=== PATIENT | female | born 1985 | race African-American/Black ===

== ENCOUNTER 2020-10-01 13:53 | Emergency (ER) | payer OTHER ==
[~2020-10-01] VITALS: Ht 165.1 cm; Wt 82.0 kg
[2020-10-01] MEDS ORDERED: KETOROLAC 30MG/ML VIAL IV STA (14:41)
[2020-10-01] MEDS ORDERED: SODIUM CHLORIDE 0.9% 1,000 ML IV ONE (14:45)
[2020-10-01] MEDS ORDERED: METOCLOPRAMIDE HCL 10MG/2ML VIAL IV ONE (14:45)
[2020-10-01] MEDS ORDERED: IBUP-2030 MT (16:20)
[2020-10-01] MEDS ORDERED: METO5TAB86 MT (16:20)
[2020-10-01 17:06] VITALS: BP 126/85
== END 2020-10-01 17:08 | disposition home or self-care (01) ==
LOC: ER 14:16
DX: R51.9 Headache, unspecified (principal); Z98.890 Other specified postprocedural states
CPT/HCPCS: 96361; 96374; 96375; 99284; J1885; J2765; J7030; Z7610